=== PATIENT | male | born 1960 | race Caucasian/White ===

== ENCOUNTER → 2020-10-08 | Outpatient (CLI) | payer MEDICAID ==
[2020-10-08 08:49] LABS: BASOPHILS % (AUTO) 1 % (0-1); EOSINOPHILS % (AUTO) 2 % (1-7); LYMPHOCYTES % (AUTO) 23 % (22-44); MEAN CORPUSCULAR HGB CONC 33.9 g/dL (33.2-36.2); MEAN PLATELET VOLUME 5.8 fL (7.4-10.4); MONOCYTES % (AUTO) 10 % (2-9); NEUTROPHILS % (AUTO) 63 % (42-75); PLATELET COUNT 360 x10^3/uL (130-400); RED BLOOD COUNT 4.72 x10^6/uL (4.38-5.82); RED CELL DISTRIBUTION WIDTH 13.6 % (9.4-14.8)
[2020-10-08 08:58] LABS: ANION GAP 5 mmol/L (5-15); CALCIUM 8.9 mg/dL (8.5-10.1); CHLORIDE 108 mmol/L (98-107); CREATININE 1.05 mg/dL (0.7-1.3)
[2020-10-08 08:59] LABS: INTERNATIONAL NORMALIZED RATIO 1.01 (0.93-1.1); PROTHROMBIN TIME 10.8 Seconds (9.6-11.5)
== END | disposition home or self-care (01) ==
LOC: STAR 08:05
PROVIDERS: ATTEND Orthopaedic Surgery
DX: Z01.818 Encounter for other preprocedural examination (principal); M25.512 Pain in left shoulder; M19.012 Primary osteoarthritis, left shoulder; R94.31 Abnormal electrocardiogram [ECG] [EKG]; Z20.822 Contact with and (suspected) exposure to COVID-19
CPT/HCPCS: 36415; 80048; 83036; 85025; 85610; 85730; 87081; 87147; 93005; U0003; U0005

== ENCOUNTER 2020-10-13 08:26 | Day surgery (SDC) | payer MEDICAID ==
[~2020-10-13] VITALS: Ht 172.7 cm; Wt 92.7 kg
[~2020-10-13 08:26] MED LIST: BUPIVACAINE LIPOSOME/PF 10ML INFIL ONE; CLINDAMYCIN 150 MG/ML, 6ML ONE
[2020-10-13] MEDS ORDERED: ALBUTEROL SULFATE 2.5 MG/3 ML NPPB PRN (08:30)
[2020-10-13] MEDS ORDERED: LABETALOL 5MG/ML, 20ML IV PRN (08:30)
[2020-10-13] MEDS ORDERED: MEPERIDINE/PF 25MG/0.5ML IVPush PRN (08:30)
[2020-10-13] MEDS ORDERED: PROMETHAZINE 25 MG/ML, 1ML IVPush PRN (08:30)
[2020-10-13] MEDS ORDERED: LORazepam 2 MG/ML, 1ML IVPush PRN (08:30)
[2020-10-13] MEDS ORDERED: HYDROmorphone 1 MG/ML, 1ML INJ IVPush PRN (08:30)
[2020-10-13] MEDS ORDERED: ACETAMINOPHEN 325 MG TABLET PO PRN (08:30)
[2020-10-13] MEDS ORDERED: NO HOME MEDS PER PT (08:45)
[2020-10-13 08:46] VITALS: BP 142/85
[2020-10-13] MEDS ORDERED: LACTATED RINGERS 1,000 ML IV SCH (09:00)
[2020-10-13] MEDS ORDERED: CHLORHEXIDINE 15 ML UDC PO ONE (09:00)
[2020-10-13] MEDS ORDERED: FENTANYL PF 250 MCG/5ML ONE (09:45)
[2020-10-13] MEDS ORDERED: MIDAZOLAM 1 MG/ML, 2ML ONE (09:45)
[2020-10-13] MEDS ORDERED: EPHEDRINE 50 MG/ML, 1ML ONE (11:01)
[2020-10-13] MEDS ORDERED: LIDOCAINE-MPF 2% ,5ML ONE (11:40)
[2020-10-13] MEDS ORDERED: ONDANSETRON 2MG/ML, 2ML ONE (11:45)
[2020-10-13] MEDS ORDERED: NEOSTIGMINE 1 MG/ML, 10ML ONE (11:45)
[2020-10-13] MEDS ORDERED: CEFAZOLIN 1,000 MG ONE (11:45)
[2020-10-13] MEDS ORDERED: GLYCOPYRROLATE 0.2MG/1ML, 5ML ONE (11:45)
[2020-10-13] MEDS ORDERED: DEXAMETHASONE 4 MG/ML, 1ML ONE (11:45)
[2020-10-13] MEDS ORDERED: ROCURONIUM 10MG/ML,5ML ONE (11:45)
[2020-10-13] MEDS ORDERED: PROPOFOL 10 MG/ML, 20ML ONE (11:45)
[2020-10-13] MEDS ORDERED: BUPIVACAINE/PF 0.5% ONE (11:46)
[2020-10-13] MEDS ORDERED: ACETAMINOPHEN 650 MG/20.3 ML UDC ONE (13:40)
[2020-10-13] MEDS ORDERED: FENTANYL PF 100 MCG/2ML ONE (13:40)
[2020-10-13] MEDS ORDERED: OXYcodone 5 MG/5 ML ORAL.SOL UDC ONE (13:41)
[2020-10-13] MEDS ORDERED: HYDROcodone/APAP 7.5-325MG/15ML UDC ONE (13:44)
[2020-10-13] MEDS: HYDROcodone/APAP 7.5-325MG/15ML UDC PO PRN ×2 (13:45→17:35)
[2020-10-13] MEDS: FENTANYL PF 100 MCG/2ML IV PRN ×2 (13:55→14:02)
[2020-10-13] MEDS ORDERED: MEPERIDINE/PF 25MG/ML,1ML ONE (16:29)
== END 2020-10-13 17:50 | disposition home or self-care (01) ==
LOC: OUT 08:26
PROVIDERS: ATTEND Orthopaedic Surgery
DX: M19.012 Primary osteoarthritis, left shoulder (principal); M19.011 Primary osteoarthritis, right shoulder; M65.812 Other synovitis and tenosynovitis, left shoulder; M25.712 Osteophyte, left shoulder; D21.12 Benign neoplasm of connective and other soft tissue of left upper limb, including shoulder; M67.422 Ganglion, left elbow; Z79.899 Other long term (current) drug therapy
CPT/HCPCS: 23472; 24076; 64415; 88304; C1713; C1776; J0690; J1100; J2250; J2405; J2704; J2710; J3010; J7120